=== PATIENT | female | born 1965 | race Caucasian/White ===

== ENCOUNTER 2023-02-09 07:02 | Day surgery (SDC) | payer OTHER ==
[~2023-02-09] VITALS: Ht 144.8 cm; Wt 73.5 kg
[2023-02-09] MEDS ORDERED: diphenhydrAMINE 50 MG/ML VIAL ONE (08:19)
[2023-02-09] MEDS ORDERED: fentaNYL citrate 0.05 MG/ML VIAL ONE (08:20)
[2023-02-09] MEDS ORDERED: MIDAZOLAM 5 MG/5 ML VIAL ONE (08:20)
[2023-02-09] MEDS ORDERED: LIDOCAINE 2% 100 MG/5 ML UJET TP ONE (08:21)
[2023-02-09] MEDS ORDERED: MIDAZOLAM 2 MG/2 ML VIAL IVP ONE (09:55)
[2023-02-09] MEDS ORDERED: fentaNYL citrate 0.05 MG/ML VIAL IVP ONE (09:55)
== END 2023-02-09 09:52 | disposition home or self-care (01) ==
LOC: MMU 07:02 → MOR 07:02
PROVIDERS: ATTEND Internal Medicine Gastroenterology
DX: R13.10 Dysphagia, unspecified (principal); K22.0 Achalasia of cardia; K21.9 Gastro-esophageal reflux disease without esophagitis; E03.9 Hypothyroidism, unspecified; Z79.84 Long term (current) use of oral hypoglycemic drugs; Z79.899 Other long term (current) drug therapy
CPT/HCPCS: 43239; 82948; J2250; J3010; 88305; J1200

== ENCOUNTER 2024-01-10 19:43 | Emergency (ER) | payer OTHER ==
[~2024-01-10] VITALS: Ht 144.8 cm; Wt 74.8 kg
[2024-01-10 19:54] VITALS: BP 170/77; PULSE 70; RESP 19; TEMP 97.8; O2SAT 99
[2024-01-10] MEDS: FLUORESCEIN OPTH STRIP 1 MG OP ONE (20:32)
[2024-01-10] MEDS: TETRACAINE HCL/PF 0.5% OPTH 4 ML BTL OP ONE (20:32)
== END 2024-01-10 21:00 | disposition home or self-care (01) ==
LOC: MED 19:43
DX: H57.12 Ocular pain, left eye (principal); K21.9 Gastro-esophageal reflux disease without esophagitis; E05.90 Thyrotoxicosis, unspecified without thyrotoxic crisis or storm
CPT/HCPCS: 99283